=== PATIENT | male | born 1950 | race Caucasian/White ===

== ENCOUNTER → 2017-07-13 | Day surgery (SDC) | payer MEDICARE, BC ==
[2017-07-12 15:01] VITALS: BMI 32.5
[~2017-07-13] MED LIST: Lidocaine 1% PF 5 ML VIAL ONE; Propofol 200 MG/20 ML VIAL ONE
[2017-07-13 11:30] LABS: #Basophils 0.1 thou/uL (0.0-0.2); #Eosinphils 0.2 thou/uL (0.0-0.7); #Lymphocytes 2.2 thou/uL (1.20-3.40); #Monocytes 0.7 thou/uL (0.11-0.59); #Neutrophils 3.6 thou/uL (1.40-6.50); %Basophils 1.1 % (0.0-1.0); %Eosinophils 3.6 % (0.0-10.0); %Lymphocytes 32.9 % (21.0-51.0); %Monocytes 9.8 % (0.0-10.0); Mean Platelet Volume 8.7 fL (7.4-10.4); White Blood Cell (WBC) Count 6.8 thou/uL (4.8-10.8)
[2017-07-13 12:04] LABS: Anion Gap 15 mmol/L (10-20); BUN (Urea Nitrogen) 19 mg/dL (8.4-25.7); Calc. Creatinine Clearance 120 mL/min (70-130); Calcium 9.1 mg/dL (7.8-10.44); Carbon Dioxide 22 mmol/L (23-31); Chloride 105 mmol/L (98-107); Estimated GFR-MDRD 83
--- NOTE | 2017-07-14 07:15 | ECHO ---
TRANSESOPHAGEAL ECHOCARDIOGRAM: DATE OF SERVICE: 07/13/17 REASON FOR STUDY: Transesophageal echo was performed to evaluate amount of mitral regurgitation. DETAILS: The patient was brought to the PACU for [place]. The anesthesia department provided anesthesia for the jaqueline sahu. Please see their notes for details. After adequate sedation was achieved, the transesophageal probe was inserted into the mouth and then into the esophagus, and orthogonal views were done. FINDINGS: Left ventricle appears to be normal size with normal wall thickness. Systolic function is estimated about 50-55% with no regional wall motion abnormalities. Left atrium is mildly dilated. Left atrial appendage is small with no evidence of mass or thrombus. Right atrium is mildly dilated. Right ventricle normal size with normal function. Aortic valve is structurally normal, three cusps, no stenosis or regurgitation. Mitral valve is structurally normal. No evidence of mitral valve prolapse. Regurgitant jet appears to be in moderate to severe range, closer to moderate. No stenosis. Tricuspid valve structurally normal. There is mild TR. Pulmonary valve structurally normal. No significant stenosis or regurgitation. Thoracic aorta is without significant atherosclerotic disease. CONCLUSIONS: 1. Systolic function with EF at 50-55%. 2. Left biatrial enlargement. 3. Mild TR. 4. Structurally normal mitral valve. No evidence of prolapse with what appears to be mostly moderate mitral regurgitation.
== END ==
LOC: CCL 10:07
PROVIDERS: ATTEND Internal Medicine Cardiovascular Disease
DX: I34.0 Nonrheumatic mitral (valve) insufficiency (principal); I10 Essential (primary) hypertension; E78.00 Pure hypercholesterolemia, unspecified; Z79.899 Other long term (current) drug therapy; Z98.84 Bariatric surgery status; Z98.890 Other specified postprocedural states
CPT/HCPCS: 36415; 80048; 85025; 93312; J2001; J2704

== ENCOUNTER 2020-12-05 15:18 | Emergency (ER) | payer BC, MEDICARE ==
[~2020-12-05 15:18] MED LIST changes: +Iopamidol-370 76% 500 ML 1 ML ONE; -Lidocaine 1% PF 5 ML VIAL ONE; -Propofol 200 MG/20 ML VIAL ONE
[2020-12-05 16:57] LABS: #Basophils 0.1 thou/uL (0.0-0.2); #Eosinphils 0.2 thou/uL (0.0-0.7); #Lymphocytes 1.7 thou/uL (1.20-3.40); #Monocytes 0.5 thou/uL (0.11-0.59); #Neutrophils 4.7 thou/uL (1.40-6.50); %Eosinophils 2.5 % (0.0-10.0); %Monocytes 7.4 % (0.0-10.0); %Neutrophils 65.1 % (42.0-75.0); Hemoglobin 14.4 g/dL (14.0-18.0); Mean Corpuscular HGB CONC 34.3 g/dL (32.0-36.0); Mean Corpuscular Hemoglobin 34.9 pg (27.0-31.0); Mean Platelet Volume 7.7 fL (7.4-10.4); Platelet Count 221 thou/uL (130-400); RBC Distribution Width 11.9 % (11.5-14.5); Red Blood Cell (RBC) Count 4.13 mill/uL (4.70-6.10); White Blood Cell (WBC) Count 7.1 thou/uL (4.8-10.8)
[2020-12-05 17:21] LABS: ALT (SGPT) 15 U/L (8-55); AST (SGOT) 20 U/L (5-34); Albumin 4.2 g/dL (3.4-4.8); Alkaline Phosphatase 44 U/L (40-110); Anion Gap 15 mmol/L (10-20); BUN (Urea Nitrogen) 14 mg/dL (8.4-25.7); Bilirubin, Total 0.8 mg/dL (0.2-1.2); Calc. Creatinine Clearance 0 mL/min (70-130); Calcium 9.5 mg/dL (7.8-10.44); Carbon Dioxide 24 mmol/L (23-31); Chloride 102 mmol/L (98-107); Globulin 2.9 g/dL (2.4-3.5); Glucose 106 mg/dL (83-110); Protein, Total 7.1 g/dL (5.8-8.1); Sodium 137 mmol/L (136-145)
== END 2020-12-05 21:30 | disposition home or self-care (01) ==
LOC: ERS 15:18
DX: R10.31 Right lower quadrant pain (principal); I10 Essential (primary) hypertension; Z87.891 Personal history of nicotine dependence; Z79.82 Long term (current) use of aspirin; Z79.899 Other long term (current) drug therapy
CPT/HCPCS: 36415; 74177; 80053; 85025; 86850; 86900; 86901; Q9967